=== PATIENT | male | born 1980 | race Hispanic/Latino ===

== ENCOUNTER 2023-01-19 06:19 | Emergency (ER) | payer OTHER, MEDICARE ==
[~2023-01-19] VITALS: Ht 172.7 cm; Wt 88.0 kg
[2023-01-19 06:48] LABS: BASOPHILS # (AUTO) 0.05 K/uL (0.00-0.20); BASOPHILS % (AUTO) 0.6 % (0.0-5.0); EOSINOPHILS % (AUTO) 2.4 % (0.0-8.0); HEMATOCRIT 46.2 % (42-54); IMMATURE GRANULOCYTE ABSOLUTE 0.03 K/uL (0-1); LYMPHOCYTES # (AUTO) 1.7 K/uL (1.0-4.8); LYMPHOCYTES % (AUTO) 19.8 % (21.0-51.0); MEAN CORPUSCULAR HEMOGLOBIN 29.4 pg (27.0-33.0); MEAN CORPUSCULAR HGB CONC 32.9 g/dL (32.0-36.0); MEAN CORPUSCULAR VOLUME 89.4 fL (79-99); MONOCYTES # (AUTO) 0.7 K/uL (0.1-1.0); MONOCYTES % (AUTO) 7.8 % (3.0-13.0); NEUTROPHILS # (AUTO) 5.8 K/uL (1.8-7.7); PLATELET COUNT (AUTO) 270 K/uL (130-400); RED BLOOD CELL COUNT(AUTO) 5.17 MIL/uL (4.50-6.20); RED CELL DISTRIBUTION WIDTH 13.6 % (11.0-15.5); WHITE BLOOD COUNT (AUTO) 8.4 K/uL (4.8-10.8)
[2023-01-19 07:00] LABS: INR 0.96 (0.85-1.15); PROTHROMBIN TIME 11.2 SEC (9.6-11.6)
[2023-01-19 07:01] LABS: PARTIAL THROMBOPLASTIN TIME 31.1 SEC (26.3-35.5)
[2023-01-19 07:03] LABS: ALBUMIN 3.9 g/dL (3.5-5.0); BILIRUBIN,TOTAL 0.3 mg/dL (0.2-1.0); POTASSIUM 3.6 mmol/L (3.5-5.1); TOTAL PROTEIN, SERUM 7.3 g/dL (6.0-8.3)
[2023-01-19] MEDS ORDERED: KETOROLAC 30MG VIAL (30MG/ML) IVP ONE (07:30)
[2023-01-19] MEDS ORDERED: HYDROXYZINE 25 MG TABLET PO ONE (07:30)
[2023-01-19] MEDS ORDERED: FAMOTIDINE 20MG VIAL IV ONE (07:30)
[2023-01-19] MEDS ORDERED: METOCLOPRAMIDE 10 MG/2 ML VIAL IVP ONE (07:30)
[2023-01-19] MEDS ORDERED: DIAZEPAM 5 MG/ML 2 ML SYG IVP ONE (07:30)
[2023-01-19 08:26] LABS: AMPHET/METH SCREEN,URINE NEGATIVE (NEGATIVE); BARBITURATE SCREEN, URINE NEGATIVE (NEGATIVE); BENZODIAZEPINES SCREEN,URINE NEGATIVE (NEGATIVE); CANNABINOID SCREEN,URINE NEGATIVE (NEGATIVE); COCAINE SCREEN,URINE POSITIVE (NEGATIVE); OPIATE SCREEN,URINE NEGATIVE (NEGATIVE); PHENCYCLIDINE SCREEN,URINE NEGATIVE (NEGATIVE)
[2023-01-19 08:30] LABS: ADD UA MICROSCOPIC YES; APPEARANCE,URINE CLEAR (CLEAR); BILIRUBIN,URINE NEGATIVE (NEGATIVE); COLOR,URINE COLORLESS (YELLOW); GLUCOSE, URINE (UA) NEGATIVE (NEGATIVE); KETONES,URINE NEGATIVE (NEGATIVE); LEUKOCYTE ESTERASE ,URINE 75 Leu/uL (NEGATIVE); NITRATE,URINE NEGATIVE (NEGATIVE); PROTEIN,URINE NEGATIVE (NEGATIVE); UROBILINOGEN,URINE 0.2 mg/dL (0.2-1.0)
[2023-01-19 08:33] LABS: MUCUS,URINE RARE LPF (None Seen)
[2023-01-19] MEDS ORDERED: PREG25 PO (10:01)
[2023-01-19 10:56] VITALS: BP 113/69; PULSE 75; RESP 18; O2SAT 98
== END 2023-01-19 10:59 | disposition home or self-care (01) ==
LOC: EDH 06:19
DX: M54.12 Radiculopathy, cervical region (principal); G47.00 Insomnia, unspecified; F41.9 Anxiety disorder, unspecified; F14.10 Cocaine abuse, uncomplicated; F31.9 Bipolar disorder, unspecified
CPT/HCPCS: 99285; 70450; 96374; 96375; 71045; 82550; 84484; 80053; 80305; 85025; 85610; 85730; 87088; 81001; 36415; 72125; J3490; J3360; J1885; J2765

== ENCOUNTER 2023-12-05 03:12 | Emergency (ER) | payer OTHER, MEDICARE ==
[~2023-12-05 03:12] MED LIST: PREG25 PO
[2023-12-05] MEDS: LACTATED RINGERS 1000ML 1,000 ML IV ONE (03:36)
[2023-12-05 03:43] LABS: BASOPHILS # (AUTO) 0.05 K/uL (0.00-0.20); BASOPHILS % (AUTO) 0.8 % (0.0-5.0); EOSINOPHILS # (AUTO) 0.27 K/uL (0.00-0.70); EOSINOPHILS % (AUTO) 4.2 % (0.0-8.0); HEMATOCRIT 41.9 % (42-54); IMMATURE GRANULOCYTE ABSOLUTE 0.01 K/uL (0-1); LYMPHOCYTES # (AUTO) 2.3 K/uL (1.0-4.8); LYMPHOCYTES % (AUTO) 35.1 % (21.0-51.0); MEAN CORPUSCULAR HEMOGLOBIN 28.9 pg (27.0-33.0); MEAN CORPUSCULAR HGB CONC 32.9 g/dL (32.0-36.0); MEAN CORPUSCULAR VOLUME 87.8 fL (79-99); MONOCYTES # (AUTO) 0.8 K/uL (0.1-1.0); MONOCYTES % (AUTO) 11.5 % (3.0-13.0); NEUTROPHILS # (AUTO) 3.1 K/uL (1.8-7.7); NEUTROPHILS % (AUTO) 48.2 % (40.0-77.0); PLATELET COUNT (AUTO) 292 K/uL (130-400); RED BLOOD CELL COUNT(AUTO) 4.77 MIL/uL (4.50-6.20); RED CELL DISTRIBUTION WIDTH 13.4 % (11.0-15.5); WHITE BLOOD COUNT (AUTO) 6.5 K/uL (4.8-10.8)
[2023-12-05 03:56] LABS: MAGNESIUM 2.2 mg/dL (1.80-2.40); POTASSIUM 3.4 mmol/L (3.5-5.1)
[2023-12-05 03:58] LABS: INR 1.11 (0.85-1.15); PROTHROMBIN TIME 11.9 SEC (9.6-11.6)
[2023-12-05 03:59] LABS: PARTIAL THROMBOPLASTIN TIME 30.5 SEC (26.3-35.5)
[2023-12-05 04:14] LABS: B-TYPE NATRIURETIC PEPTIDE < 5 pg/mL (0-100)
[2023-12-05 04:26] VITALS: BP 97/67; PULSE 50; RESP 16; O2SAT 100
[2023-12-05] MEDS ORDERED: POTASSIUM BICARB/CIT AC 25 MEQ TABLET.EFF PO ONE (04:30)
== END 2023-12-05 04:39 | disposition home or self-care (01) ==
LOC: EDH 03:12
DX: F14.10 Cocaine abuse, uncomplicated (principal); R42 Dizziness and giddiness; R20.2 Paresthesia of skin; R20.0 Anesthesia of skin; M79.671 Pain in right foot; M79.672 Pain in left foot; F31.9 Bipolar disorder, unspecified; F41.9 Anxiety disorder, unspecified; Z91.018 Allergy to other foods
CPT/HCPCS: 99285; 71045; 82550; 83735; 84484; 80048; 83880; 85025; 85610; 85730; 36415; 93005; J7120